=== PATIENT | male | born 1935 | race Caucasian/White ===

== ENCOUNTER 2017-01-06 00:43 | Inpatient (IN) | payer MEDICARE, OTHER ==
[2017-01-06] VITALS (15 sets, daily range): BP systolic 105–144; BP diastolic 53–75; PULSE 60–90; RESP 16–24; O2SAT 95–98
[~2017-01-06] VITALS: Ht 175.3 cm; Wt 79.4 kg
--- NOTE | 2017-01-06 00:42 | ED.REPORT ---
HPI-Chest Pain 40 and Over Date of Service Jan 06, 2017 ED Provider: Dr. Ramirez Pt is an 81 y/o male w/ a hx of HLD, aortic stenosis, presenting to the ED via EMS c/o sudden-onset substernal CP which began prior to arrival. The patient was experiencing some congestion and other URI-like symptoms throughout the day and went to sleep. He woke up during the night experiencing 10/10 non-radiating , substernal chest pain associated with excessive diaphoresis and called EMS. EMS gave him aspirin and applied nitro paste which reduced his CP to 7/10. During the time of his severe chest pain his EKG showed lateral ST depression in V3-V6. Pt denies any SOB, nausea, vomiting, abdominal pain. On 11/26/15 he had a negative pharmacological stress test. Nursing Notes Stated Complaint: MIDLINE CHEST PAIN Nursing Notes Reviewed: Yes Allergies: Coded Allergies: No Known Allergies (Unverified , 02/09/10) Scheduled Allopurinol-Expunged Drug, Do Not Renew! (Allopurinol-Expunged Drug, Do Not Renew!) 100 Mg Tablet 200 MG PO AM AmLODIPine-Expunged Drug, Do Not Renew! (AmLODIPine-Expunged Drug, Do Not Renew! ) 5 Mg Tablet 5 MG PO AM Aspirin-Expunged Drug, Do Not Renew! (Aspirin-Expunged Drug, Do Not Renew!) 325 Mg Tablet 81 MG PO AM Atorvastatin-Expunged Drug, Do Not Renew! (Atorvastatin-Expunged Drug, Do Not Renew!) 10 Mg Tablet 10 MG PO AM Furosemide-Expunged Drug, Do Not Renew! (Lasix-Expunged Drug, Do Not Renew!) 40 Mg Tablet 40 MG PO AM Glucosamine Hcl/Chondro Cross A (Glucosamine-Chondroitin Cap) 1 Cap Capsule 1 CAP PO AM IBUPROFEN-Expunged Drug, Do Not Renew! (IBUPROFEN-Expunged Drug, Do Not Renew!) 400 Mg Tablet 200 MG PO PRN Lisinopril-Expunged Drug, Do Not Renew! (Lisinopril-Expunged Drug, Do Not Renew! ) 10 Mg Tablet 10 MG PO AM General Time Seen by MD: 00:42 Chief Complaint Chest pain Hx Obtained From: Patient, EMS Arrived By: Ambulance Sudden in Onset?: Yes Onset Occurred: Just prior to arrival Symptom Duration: Since onset Location: : Substernal Quality: Painful Severity: Current: Moderate Severity: Maximum: Severe Past Medical History Past Medical History Notes: Echo 11/26/15: Interpretation Summary Normal left ventricle size with ejection fraction 60-65%. Grade I diastolic dysfunction. Severely dilated left atrium. Mildly dilated right atrium. Moderate aortic stenosis. The peak aortic velocity is 338.7 cm/sec. The calculated aortic valve area is 0.95 cm sq. Mild to moderate aortic regurgitation. Severe mitral annular calcification. Moderate mitral regurgitation. Comparison is made with the echocardiogram of 10/26/14, aortic stenosis and aortic regurgitation have progressed. Pharm stress test 11/26/15: negative Past Medical History Hyperlipidemia Aortic stenosis Past Surgical History None reported Smoking History Unknown if Ever Smoker Ambulatory Status Independent Review of Systems Respiratory: Denies: Shortness of breath Cardiovascular: Reports: Chest pain GI: Denies: Abdominal pain, Nausea, Vomiting Skin: Reports Diaphoresis Neurologic: Denies: Syncope Complete sys rev & neg: except as marked. Ears / Nose / Throat: Reports: Nasal congestion Physical Exam Initial Vital Signs Vital Signs (First) Date Time Temp Pulse Resp B/P Pulse Ox O2 Delivery O2 Flow Rate FiO2 01/06/17 00:45 36.8 90 24 134/75 98 Room Air Initial VS: Reviewed, Vital signs normal Head / Eyes: Atraumatic, Normocephalic ENT: Mucous membranes moist, Conjunctiva normal Neck: Supple, Full range of motion Extremities: Vascular intact, Neuro intact, No swelling Skin: Warm, Dry, No cyanosis Neurologic: Alert, Oriented, Nonfocal Psychiatric: Mood/affect normal, Behavior normal, Normal thought content General/Constitutional: Awake, Alert, No acute distress, Cooperative, Not toxic appearing Respiratory / Chest: Atraumatic, Breath sounds NL, Breath sounds = bilat, No respiratory distress, No rales, No rhonchi, No wheezing, No retractions, No stridor, No chest tenderness, No chest wall deformity, No crepitus Cardiovascular: Heart rate NL, Regular rhythm, Heart sounds NL, No gallop, No murmurs, No rubs, Cap refill not delayed, Peripheral circulation NL, Pulses = bilaterally Abdomen: Atraumatic, Soft, Non-tender, No guarding, No rebound, No distention, No palpable mass, No pulsatile mass Interpretation & Diagnostics Lab Results Interpretation Result Diagram: 01/06/17 0054 01/06/17 0054 Test 01/06/17 00:54 White Blood Count 11.7th/mm3 (3.8-10.1) Red Blood Count 4.44mil/mm3 (4.40-5.80) Hemoglobin 14.1g/dL (13.8-17.2) Hematocrit 39.3% (41.0-50.0) Mean Corpuscular Volume 88.5fL (81-100) Mean Corpuscular Hemoglobin 31.8pg (27.0-35.0) Mean Corpuscular Hemoglobin Concent 35.9% (32.0-37.0) Red Cell Distribution Width 14.7% (12.3-15.4) Platelet Count 140bil/L (150-400) Neutrophils (%) (Auto) 60.6% (40-74) Lymphocytes (%) (Auto) 23.4% (14-46) Monocytes (%) (Auto) 14.8% (4-12) Eosinophils (%) (Auto) 0.8% (0-5) Basophils (%) (Auto) 0.2% (0-3) Hold Purple Top Tube Received (Received) Prothrombin Time 10.3sec (8.1-12.5) Prothromb Time International Ratio 0.96ratio Activated Partial Thromboplast Time 26.6sec (22.8-33.0) Sodium Level 140mEq/L (134-144) Potassium Level 4.2mEq/L (3.5-5.2) Chloride Level 102mEq/L (97-108) Carbon Dioxide Level 25mmol/L (18-29) Blood Urea Nitrogen 28mg/dL (8-27) Creatinine 1.33mg/dL (0.76-1.27) Estimat Glomerular Filtration Rate 55mL/min (>59) Glucose Level 151mg/dL (60-99) Calcium Level 9.1mg/dL (8.5-10.1) Total Bilirubin 0.9mg/dL (0.0-1.2) Aspartate Amino Transf (AST/SGOT) 23U/L (0-50) Alanine Aminotransferase (ALT/SGPT) 23U/L (0-44) Alkaline Phosphatase 84U/L (25-160) Pro-B-Type Natriuretic Peptide 768.0pg/mL (0-486) Total Protein 7.1g/dL (6.4-8.4) Albumin 3.7g/dL (3.4-5.0) ECG Interpretation ECG Interpretation: Sinus rhythm rate [address] segment changes EKG from field shows lateral ST depression in leads V3-V6 which is now resolved Time: 12:48 Interpreted by: ED physician ECG Interpretation: Repeat EKG unchanged Time: 01:04 Interpreted by: ED physician Normal ECG Interpretation: No acute ischemic changes X-Ray Chest Interpretation View: Portable, 1 view Interpretation / Wet Read by: Wet read ED physician NL X-Ray Chest Findings: No infiltrate, No acute disease Re-Eval/Medical Decision Med Decision/Clinical Course 81-year-old with a cardiac history notable only for aortic stenosis, but negative for ischemic disease when checked with MIBI test just over a year ago. He presents now with chest discomfort and a variable cardiogram suggesting lateral ischemia. Initial troponin is elevated. He is admitted for completion rule in protocol, and further evaluation with a diagnosis of nontransmural NE. Currently involved appears to be lateral wall with changes notable in V3 through V6. Source of Hx: Old records, EMS Time of Eval: 01:04 Re-Evaluation/Progress Note: Pt rechecked. Pain increased. Will obtain another ekg. Informed pt of plan for admission. Pt understands and agrees with plan for admission. All questions addressed. Time of Eval: 01:15 Re-Evaluation/Progress Note: Pt rechecked. Pain decreased. Consultation : Referral / Consult Name: Solange Garcia DO Consulted With: Hospitalist Call Returned at: 02:30 Market Research Analyst: Will see patient, Agrees with eval, Agrees with plan, Accepts admit Counseled Regarding: Diagnosis, Lab results, Need for admission Discharge & Departure Primary Impression: NSTEMI (non-ST elevated myocardial infarction) Additional Impressions: Elevated troponin Unstable angina Disposition: ADMITTED TO HOSPITAL Discharge Condition All VS Reviewed: Yes Condition: Stable Referrals: Matteo Gould MD (PCP) Crit Care Except Billable Proc Time Spent: 30-74 minutes Services Performed: Patient management by me, Time spent at bedside, Reviewing test results, Reviewing imaging, Discussing patient care, Documentation in record Critical Care Notes: Unstable angina; heparinization; 30 minutes Scribe Attestation Portions of this note were transcribed by Sergio Rivers. IDr. Ramirez personally performed the history, physical exam and medical decision-making; I reviewed and confirmed the accuracy of the information in the transcribed note. copies to: Matteo Gould MD, Christopher W MD Jan 06, 2017 00:42 SERGIO RIVERS Jan 06, 2017 00:50
[~2017-01-06 00:43] MED LIST: ALLO100T PO; AMLO-39 PO; ASPI-351 PO; ATRV10T PO; FURO40TA PO; GLUC1CAP32 PO; IBUP400T22 PO; LISI10TA PO
[2017-01-06 01:04] LABS: BASOPHILS % (AUTO) 0.2 % (0-3); EOSINOPHILS % (AUTO) 0.8 % (0-5); MONOCYTES % (AUTO) 14.8 % (4-12); Mean Corpuscular Hemoglobin 31.8 pg (27.0-35.0); Mean Corpuscular Volume 88.5 fL (81-100); NEUTROPHILS % (AUTO) 60.6 % (40-74); Platelet Count 140 bil/L (150-400)
[2017-01-06] MEDS ORDERED: Heparin 5,000 Unit/mL Inj IVPUSH ONE (01:10)
[2017-01-06] MEDS ORDERED: Nitroglycerin 2% 1 Gm Ointment TOPICAL SCH (01:10)
[2017-01-06] MEDS ORDERED: Heparin 5,000 Unit/mL Inj IVPUSH PRN (01:10)
[2017-01-06] MEDS ORDERED: Heparin 25K Unit/500mL 0.45 NS 25,000 UNIT in IV Premix 1 EACH IV SCH (01:10)
[2017-01-06] MEDS: MeTOProlol 1 mg/mL 5 mL Inj IVPUSH PRN ×3 (01:20→01:51)
[2017-01-06 01:29] LABS: INR 0.96 ratio
[2017-01-06 01:53] LABS: Magnesium 2.1 mg/dL (1.6-2.6)
[2017-01-06 01:55] LABS: TROPONIN T 0.048 ug/L (0.0-0.011)
[2017-01-06] MEDS ORDERED: Alum-Mag Hydrox-Simeth 30 mL Suspension PO PRN (02:45)
[2017-01-06] MEDS ORDERED: Senna-Docusate 8.6-50 mg Tablet PO PRN (02:45)
[2017-01-06] MEDS ORDERED: Ondansetron 2 mg/mL 2 mL Inj IVPUSH PRN ×2 (02:45→12:54)
[2017-01-06] MEDS ORDERED: Polyethylene Glycol (PEG) 17 Gm Powder PO PRN (02:45)
[2017-01-06] MEDS ORDERED: Atropine 1 mg/10 mL (Code) Syringe IVPUSH PRN (02:45)
--- NOTE | 2017-01-06 03:57 | PCM.HPMED ---
Subjective Date of Service Jan 06, 2017 Primary Provider: Admitting Physician: Primary Care Physician: Matteo Gould MD Attending Physician: Chief Complaint: Chest pain History of Present Illness: Mesfin Vásquez is an 81-year-old man with past medical history significant for hypertension, hyperlipidemia, moderate aortic stenosis, gout, and idiopathic polyneuropathy presents via EMS to [facility] ED due to sudden 10 out of 10 substernal chest pain. The patient had been experiencing some upper respiratory symptoms over the last 48 hours and decided to go back to bed early. When joined him she noted that he was diaphoretic and he at that time complained of chest pain and asked her to call 911. When EMS arrived on site EKG showed lateral ST depression in leads V3 through V6 and patient complained of 10 out of 10 chest pain. EMS gave aspirin and applied Nitropaste which reduced his pain to a 7 out of 10. Patient denies any arm pain although he notes some numbness and tingling in his left fingers. Patient denies any associated shortness of breath, nausea, vomiting, abdominal pain, headache, or lightheadedness. Patient has never had an episode like this in the past. Notably the patient has had a recent negative pharmacologic stress test on 11/25 along with an echocardiogram which showed no wall motion abnormalities. Echocardiogram was significant for progression of aortic stenosis and aortic regurgitation from prior echocardiogram on 10/26/2014. On presentation to the ED vital signs were temperature 36.8, pulse 90, respiratory rate 24 satting 98% on room air, and a blood pressure 134/75. Initial labs aside from the troponin T of 0.048 and elevated BUN and creatinine of 28 and 1.33 were unremarkable. EKG was obtained which showed resolution of ST segment depression seen in the field. Chest x-ray showed no acute cardiopulmonary process. In the ED patient was started on heparin drip and given nitroglycerin and morphine for symptom management. Patient also received 3 doses of metoprolol tartrate 5 mg IV. Review of Systems: Comprehensive review of systems was conducted with the patient and found to be negative except as noted above in HPI. Allergies Coded Allergies: No Known Allergies (Unverified , 02/09/10) Home Medications Mesfin Vásquez Saman. [id number] 1935 10/24/2016 09:40 AM 04/1301/03/2016 allopurinol 100 mg tablet take 1 tablet by ORAL route 2 times every day to prevent gout attack aspirin 81 mg tablet,delayed release take 1 tablet by oral route every day 10/24/2016 atorvastatin 10 mg tablet take 1 tablet by oral route every day 03/30/2016 furosemide 40 mg tablet take 0.5 tablet (20MG) by ORAL route every day 01/27/2016 gabapentin 600 mg tablet take 1 tablet by oral route 3 times every day GLUCOSAMINE SULFATE take 1 tablet every day 01/03/2016 lisinopril 10 mg tablet take 1 tablet (10MG) by ORAL route every day for high blood pressure. Vitamin D3 2,000 unit capsule take 1 tablet every day PMH Erectile dysfunction ASAEL Gout Idiopathic peripheral neuropathy Aortic stenosis Hypertension Moderate mitral regurgitation Hyperlipidemia Restless leg syndrome Surgical History Lumbar spinal fusion Hernia repair Bilateral cataract extraction Appendectomy Family History Brother - [place] Father - [place] Mother - CVA Social History Hx Alcohol Use: Yes Hx Substance Use: No Hx Tobacco Use: Yes Smoking Status: Former Smoker, Unknown if Ever Smoker Years of Smokin Living Arrangement: with Family Exam Vital Signs Vital Sign - Last Date Time Temp Pulse Resp B/P Pulse Ox O2 Delivery O2 Flow Rate FiO2 01/06/17 02:25 60 16 134/54 97 Room Air 01/06/17 00:45 36.8 Exam General: No acute distress. Forgetful likely secondary to morphine. Answers questions appropriately. HEENT: Normocephalic, atraumatic. External ears without defect. Pupils equal, round, and reactive to light and accommodation. Anicteric sclerae, moist conjunctivae, and no lid lag. Oropharynx free of erythema and cobble stoning with moist mucosa. Neck: Supple with full range of motion. No jugular venous distension. Cardiovascular: Regular rate and rhythm with 4-6 holosystolic murmur. Pulmonary: Clear to auscultation bilaterally with no crackles, wheezes, or rhonchi. Normal respiratory effort with no use of accessory muscles. Abdomen: Bowel tones present. Soft, nontender, nondistended. No hepatosplenomegaly or masses appreciated. Extremities: No clubbing, cyanosis, edema, or lymphadenopathy appreciated. Skin: Normal temperature, turgor, and texture; no rash, ulcers, or subcutaneous nodules appreciated. Neurological: Cranial nerves grossly intact. Normal muscle strength, tone, and bulk aside from decreased dorsiflexion in the right foot (the family says is chronic and due to his spinal surgery). Reflexes, coordination, and sensory function within normal limits. No known gait impairment. Psychiatric: Normal mood and affect. Alert and oriented to person, place, and time. Lab and Diagnostics Labs Troponin T 0.048 Result Diagram: 01/06/175301/06/1753 X-Rays, CTs and MRIs Chest x-ray showed no acute cardiopulmonary process. Official report pending. 12-lead ECG Sinus rhythm rate [address] segment changes EKG from field shows lateral ST depression in leads V3-V6 which is now resolved Cardiac Echo Impressions 1 DAY PHARMACOLOGICAL STRESS TEST Rest and pharmacological stress myocardial perfusion SPECT with gated imaging and ejection fraction IMPRESSION: 1. Appropriate hemodynamic response to pharmacologic stress. 2. No chest pain or significant ECG changes with stress. 3. No scintigraphic evidence for significant areas of myocardial ischemia at the level of stress achieved. 4. Lower limits of normal left ventricular size with normal to hyperdynamic systolic function. Dictated by: Nidia Jovel M.D. on 11/26/2015 at 16:18 Approved by: Nidia Jovel M.D. on 11/26/2015 at 16:18 Echocardiogram Report Name: MESFIN VÁSQUEZ Study Date: 11/26/2015 Height: 69 in Interpretation Summary Normal left ventricle size with ejection fraction 60-65%. Grade I diastolic dysfunction. Severely dilated left atrium. Mildly dilated right atrium. Moderate aortic stenosis. The peak aortic velocity is 338.7 cm/sec. The calculated aortic valve area is 0.95 cm sq. Mild to moderate aortic regurgitation. Severe mitral annular calcification. Moderate mitral regurgitation. Comparison is made with the echocardiogram of 10/26/14, aortic stenosis and aortic regurgitation have progressed. Reading Physician: Assessment & Plan Mesfin Vásquez is an 81-year-old man with past medical history significant for hypertension, hyperlipidemia, moderate aortic stenosis, gout, and idiopathic polyneuropathy presents via EMS to [facility] ED due to sudden 10 out of 10 chest pain. NSTEMI, present on admission, active. - ECG obtained in the field showed ST segment depressions in V3 through V6 which resolved with repeat EKG upon arrival to [facility]. - Recent echocardiogram and pharmacologic stress test. Results above. - PATRICK score of 5 conveying a 26.2% risk. - Initial troponin 0.048. Trending troponins 2. - Lipid panel pending. - Supplemental oxygen as needed. - Aspirin 81 mg initially received and continued daily. - Clopidogrel 300 mg loading dose followed by 75 mg daily. - Sublingual nitroglycerin and morphine as needed. - Metoprolol tartrate 5 mg IV 3 doses given in the ED. - Continue home regimen of Lisinopril 10 mg daily and Atorvastatin 10 mg daily. - Heparin drip initiated. - Echocardiogram ordered. - Consider cardiology consult in the morning. Chronic stable conditions Chronic kidney disease, present on admission, active - Etiology likely secondary to hypertension. - Baseline creatinine appears to be around 1.20. On admission creatinine 1.33. - Will hold home furosemide. Avoid nephrotoxic medications. - Continue to monitor. Idiopathic polyneuropathy - Continue home medication: Gabapentin 600 mg 3 times a day. Gout - Hold home medication: Allopurinol 100 mg twice a day. Moderate aortic stenosis and regurgitation PRN Medications - Acetaminophen as needed for mild pain/fever/headache - Bowel regimen as needed - Antiemetic as needed Patient is admitted under inpatient status with expected length of stay greater than 2 midnights due to severity of presenting symptoms, risk of adverse event, and complexity of treatment plan. Pain Evaluation: Adequate Pain Control GI Prophylaxis: Not indicated VTE Prophylaxis: Other (heparin GTT) Resuscitation Status: CPR: Attempt Resuscitation Attending Statement The patient was seen and examined together with house staff on 01/06/2017 and I agree with the history, exam and plan as outlined in the note above. ZULEIKA RODRIGUES DO Jan 06, 2017 02:45 Solange Garcia DO Jan 06, 2017 05:05
[2017-01-06] MEDS: 0.9% Sodium Chloride 1,000 ML IV SCH ×2 (05:35→16:42)
--- NOTE | 2017-01-06 07:37 | NUR ---
Admission Pt arrived from ER to [facility] # [id number] approx at 0330. Pt denies CP or SOB. VSS. Admission assessment and screening completed. Heparin gtt per cardiac protocol initiated in ER and continued upon arrival. No overt complications noted.
[2017-01-06] MEDS: Sodium Chloride LOK Flush 10 mL Syringe IVFLUSH SCH ×3 (07:42→23:37)
--- NOTE | 2017-01-06 09:55 | DRSVH ---
PROCEDURE: X-RAY CHEST ONE VIEW, PORTABLE ([id number]) INDICATIONS: chest pain TECHNIQUE: One view of the chest was acquired. COMPARISON: None. FINDINGS: Surgical changes and devices: None. Lungs and pleura: No pleural effusions or pneumothorax. Lungs are clear. Mediastinum: Mediastinal contours appear normal. Heart size is normal. Bones and chest wall: No suspicious bony lesions. Overlying soft tissues appear unremarkable. IMPRESSION: Normal for age, source of pain not found. Dictated by: Luan Ramos M.D. on 01/06/2017 at 9:53 Approved by: Luan Ramos M.D. on 01/06/2017 at 9:53
[2017-01-06 10:54] LABS: APPEARANCE,URINE CLEAR (CLEAR,HAZY); COLOR,URINE YELLOW (YELLOW); OCCULT BLOOD,URINE NEGATIVE (NEGATIVE); UROBILINOGEN,URINE NORMAL (NORMAL)
[2017-01-06] MEDS ORDERED: .Epic Conversion Completed XX PRN (12:30)
--- NOTE | 2017-01-06 15:37 | DRSVH ---
[facility] [address] [place] [address] Echocardiogram Report Name: MESFIN VÁSQUEZ CStudy Date: 01/06/2017 He ight: 67 in Hospital Exam Location: [facility] ight: 169 lb Gender: Male BS A: 1.9 m2 : 1935 Age: 81 yrs BP : 130/64 mmHg Reason For Study: Elevated Troponin History: Ordering Physician: Brent Lambist Performed By: Denies Clement Referring Physician: Wanda Way Interpretation Summary The left ventricle is normal in size.The ejection fraction is estimated to be 65-70%. There is severe mitral annular calcification. The mitral valve leaflets are moderately calcified. No significant mitral valve stenosis. There is moderate mitral regurgitation. Compared to the prior echo study, there has been no change in the severity of mitral regurgitation. The aortic valve is not well visualized. The aortic valve is severely calcified. Leaflet mobility is severely reduced. The peak aortic velocity is 3.1 m/sec. The aortic valve mean gradient is 21 mmHg. The peak aortic velocity on the previous exam was 3.4 m/sec. The calculated aortic valve area is 1.0 cm2. There is moderate to severe aortic stenosis. There is mild to moderate aortic regurgitation. Compared to the prior echo study, there has been no change in the severity of aortic regurgitation. There is mild tricuspid regurgitation. Compared to the prior echo exam, there has been no change in TR severity. The right ventricular systolic pressure is estimated at 30 mmHg assuming a right atrial pressure of 8 mm Hg. Procedure: A two-dimensional transthoracic echocardiogram with color flow and Doppler was performed. The study quality was technically adequate. Comparison is made with the echocardiogram of 11/26/2015. The patient was in normal sinus rhythm during the exam. Left Ventricle: The left ventricle is normal in size. Proximal septal thickening is noted. There is no echo evidence for significant left ventricular outflow tract obstruction. There is no thrombus. The ejection fraction is estimated to be 65-70%. There has been no significant change since the previous study. There are no focal wall motion abnormalities. Diastolic function could not be accurately assessed due to confounding valvular disease. Right Ventricle: The right ventricle is normal in size and function. Atria: The left atrium is severely dilated. The left atrium has remained unchanged in size since the prior echo exam. The right atrium is mildly dilated. There is no Doppler evidence for an interatrial shunt. Mitral Valve: There is severe mitral annular calcification. The mitral valve leaflets are moderately calcified. No significant mitral valve stenosis. There is moderate mitral regurgitation. Compared to the prior echo study, there has been no change in the severity of mitral regurgitation. Aortic Valve: The aortic valve is not well visualized. The aortic valve is severely calcified. Leaflet mobility is severely reduced. The calculated aortic valve area is 1.0 cm2. The peak aortic velocity is 3.1 m/sec. The aortic valve mean gradient is 21 mmHg. The peak aortic velocity on the previous exam was 3.4 m/sec. The aortic valve area indexed to the BSA is 0.52 . There is moderate to severe aortic stenosis. There is mild to moderate aortic regurgitation. Compared to the prior echo study, there has been no change in the severity of aortic regurgitation. Tricuspid Valve: The tricuspid valve is not well visualized, but is grossly normal. There is mild tricuspid regurgitation. The right ventricular systolic pressure is estimated at 30 mmHg assuming a right atrial pressure of 8 mm Hg. Compared to the prior echo exam, there has been no change in TR severity. Pulmonic Valve: The pulmonic valve is not well visualized. There is trace pulmonic regurgitation. Great Vessels: The aortic root is normal size. There is aortic root sclerosis/calcification. The ascending aorta is normal in size. The aortic arch could not be visualized. The IVC is of normal diameter and collapses less than 50% with a sniff. This suggests a right atrial pressure of 8 mm Hg. Pericardium/ Pleura There is no pericardial effusion. MMode/2D Measurements & Calculations LVIDd: 4.8 cm LVIDs: 2.5 cm LA A2 area: 21.7 cm FS: 47.1 % LA A4 area: 29.4 cm EPSS: 0.73 cm LA length (vol): 6.2 cm IVSd: 1.0 cm LA vol: 87.4 ml LVPWd: 0.86 cm LA vol index: 45.4 ml/m IVC diam: 1.9 cm RA long axis: 5.5 cm LVOT diam: 2.0 cm RA area: 20.0 cm AoV Openin.50 cm RA vol: 61.3 ml Ao root diam: 3.3 cm RA : 31.9 ml/m2 asc Aorta Diam: 3.0 cm LV jamil. diameter/BSA (cm/m^2): 2.5 LV sys. diameter/BSA (cm/m^2): 1.3 RVD1 (basal): 3.8 cm RVD2 (mid): 3.0 cm TAPSE: 2.5 cm Doppler Measurements & Calculations Ao V2 max: 306.4 cm/sec MV E max chevy: 145.9 cm/sec Ao max P.5 mmHg MV A max chevy: 93.4 cm/sec Ao mean P.3 mmHg MV P1/2t: 59.1 msec LVOT Max Chevy: 91.8 cm/sec MVA(VTI): 2.2 cm2 RUTH(I,D): 1.0 cm sev ratio: 0.32 AI P1/2t: 340.4 msec AI dec slope: 350.5 cm/sec2 MV E/A: 1.6 TR max chevy: 236.0 cm/sec Med Peak E' Chevy: 5.2 cm/sec TR max P.3 mmHg E/E' med: 28.0 PA V2 max: 79.4 cm/sec Lat Peak E' Chevy: 5.3 cm/sec PA mean P.4 mmHg E/E' lat: 27.4 PA Accel Time: 0.15 sec E/e' average: 27.7 MV V2 mean: 69.1 cm/sec MV P1/2t max chevy: 146.4 cm/sec MV mean P.4 mmHg MVA(P1/2t): 3.7 cm2 MV V2 VTI: 37.8 cm MV dec time: 0.19 sec Ao V2 mean: 221.0 cm/sec LV V1 max P.4 mmHg Ao V2 VTI: 82.4 cm LV V1 VTI: 26.0 cm RUTH(V,D): 0.95 cm2 PA V2 mean: 55.0 cm/sec RUTH indexed to BSA (cm^2/m^2): 0.52 Reading Physician:MATTHEW
== END 2017-01-07 01:18 | disposition admitted as inpatient to this hospital (09) | DRG 951 ==
LOC: SED 00:43 → PCC 02:52
PROVIDERS: ADMIT Internal Medicine; ATTEND Specialist
DX: R69 Illness, unspecified (principal)